=== PATIENT | female | born 1950 | race Caucasian/White ===

== ENCOUNTER → 2016-06-04 | Outpatient (CLI) | payer OTHER | LOC: BMCIMAGING 16:01 | PROVIDERS: ATTEND Internal Medicine | DX: Z13.83 Encounter for screening for respiratory disorder NEC (principal) ==

== ENCOUNTER → 2016-07-20 | Outpatient (CLI) | payer OTHER | LOC: BMCIMAGING 12:36 | PROVIDERS: ATTEND Internal Medicine | DX: Z12.31 Encounter for screening mammogram for malignant neoplasm of breast (principal) | CPT/HCPCS: G0202 ==

== ENCOUNTER → 2018-04-05 | Outpatient (CLI) | payer OTHER | LOC: BMCIMAGING 12:04 | PROVIDERS: ATTEND Nurse Practitioner Adult Health | DX: M54.41 Lumbago with sciatica, right side (principal); M41.86 Other forms of scoliosis, lumbar region ==